=== PATIENT | male | born 1965 | race African-American/Black ===

== ENCOUNTER 2023-11-05 16:33 | Inpatient (IN) | payer SELFPAY ==
[~2023-11-05] VITALS: Ht 182.9 cm; Wt 69.9 kg
[2023-11-05] MEDS ORDERED: SODIUM CHLORIDE 0.9% 1000ML BAG (SEPSIS BOLUS) IV ONE (17:45)
[2023-11-05 20:34] LABS: BASOPHILS % 0.7 % (0.0-2.0); EOSINOPHILS % 0.2 % (0.0-5.0); HEMATOCRIT. 43.3 % (42.0-52.0); HEMOGLOBIN. 14.4 g/dL (14.0-18.0); LYMPHOCYTES % 16.4 % (20.0-50.0); MEAN CORPUSCULAR HEMOGLOBIN 28.8 pg (28.0-32.0); MEAN CORPUSCULAR HGB CONC 33.3 g/dL (31.0-37.0); MEAN CORPUSCULAR VOLUME 86.6 fL (80.0-94.0); MEAN PLATELET VOLUME 8.2 fl (7.4-10.4); MONOCYTES % 5.2 % (2.0-8.0); NEUTROPHILS % 77.5 % (40.0-76.0); PLATELET 186 x1000/uL (130-400); RED CELL DISTRIBUTION WIDTH 14.8 % (11.6-14.6); WHITE BLOOD COUNT 11.4 x1000/uL (4.5-11.0)
[2023-11-05 20:49] LABS: ACETAMINOPHEN < 2 ug/mL (10-30); ALANINE AMINOTRANSFERASE 32 IU/L (10-49); ASPARTATE AMINOTRANSFERASE 52 IU/L (<34); BILIRUBIN TOTAL 0.5 mg/dL (0.1-1.0); CALCIUM 9.2 mg/dL (8.7-10.4); CARBON DIOXIDE 21 mEq/L (21-32); CHLORIDE 110 mEq/L (98-107); CREATINE KINASE 898 IU/L (46-171); CREATININE 1.1 mg/dL (0.6-1.3); ETHANOL BLOOD 19 mg/dL (<10); GLUCOSE 60 mg/dL (70-105); POTASSIUM 4.3 mEq/L (3.5-5.1); PROTEIN TOTAL 6.9 g/dL (6.0-8.3); SODIUM 142 mEq/L (136-145); TROPONIN I HIGH SENSITIVITY 16 ng/L (3.0-53); UREA NITROGEN BLOOD 13 mg/dL (9-23)
[2023-11-05 20:51] LABS: LACTIC ACID 3.9 mmol/L (0.4-2.0)
[2023-11-05 20:59] LABS: PROTHROMBIN TIME 10.5 sec (9.6-11.0)
[2023-11-05 21:04] LABS: CLARITY URINE CLEAR (CLEAR); COLOR URINE YELLOW (YELLOW); GLUCOSE URINE NEGATIVE (NEGATIVE); KETONES URINE NEGATIVE (NEGATIVE); LEUKOCYTE ESTERASE URINE NEGATIVE (NEGATIVE); NITRITE URINE NEGATIVE (NEGATIVE); OCCULT BLOOD URINE NEGATIVE (NEGATIVE); PH URINE 5.5 (4.5-8.0); PROTEIN URINE NEGATIVE (NEGATIVE); SPECIFIC GRAVITY URINE 1.009 (1.005-1.030); UROBILINOGEN URINE 0.2 E.U./dL (0.2-1.0)
[2023-11-05 21:16] LABS: *AMPHETAMINES SCREEN URINE NEGATIVE (NEGATIVE); *BARBITURATES SCREEN URINE NEGATIVE (NEGATIVE); *BENZODIAZEPINES SCREEN URINE PRESUMPTIVE POSITIVE (NEGATIVE); *COCAINE SCREEN URINE PRESUMPTIVE POSITIVE (NEGATIVE); ECSTASY MDMA SCREEN URINE NEGATIVE (NEGATIVE); METHADONE URINE SCREEN Neg (NEGATIVE); OPIATES URINE SCREEN NEGATIVE (NEGATIVE); PHENCYCLIDINE URINE SCREEN PRESUMTIVE POSITIVE (NEGATIVE)
[2023-11-05] MEDS ORDERED: DEXTROSE 50% WATER 50ML SYRINGE IV ONE (22:00)
[2023-11-05] MEDS ORDERED: CEFTRIAXONE 1GM PREMIX 50 ML IV ONE (22:00)
[2023-11-05] MEDS ORDERED: AZITHROMYCIN 500MG/250ML 250 ML IV ONE (22:00)
[2023-11-06 03:43] VITALS: BP 137/77; PULSE 69; RESP 20; TEMP 96
[2023-11-06] MEDS ORDERED: LORAZEPAM 0.5MG TABLET PO PRN (04:45)
[2023-11-06 06:26] LABS: BASOPHILS % 1.1 % (0.0-2.0); HEMATOCRIT. 38.5 % (42.0-52.0); HEMOGLOBIN. 12.9 g/dL (14.0-18.0); LYMPHOCYTES % 29.2 % (20.0-50.0); MEAN CORPUSCULAR HEMOGLOBIN 28.5 pg (28.0-32.0); MEAN CORPUSCULAR HGB CONC 33.4 g/dL (31.0-37.0); MEAN CORPUSCULAR VOLUME 85.4 fL (80.0-94.0); MEAN PLATELET VOLUME 8.4 fl (7.4-10.4); MONOCYTES % 7.2 % (2.0-8.0); NEUTROPHILS % 60.5 % (40.0-76.0); PLATELET 202 x1000/uL (130-400); RED BLOOD CELL COUNT 4.51 mill/uL (4.7-6.1); RED CELL DISTRIBUTION WIDTH 14.7 % (11.6-14.6); WHITE BLOOD COUNT 8.6 x1000/uL (4.5-11.0)
[2023-11-06 07:12] LABS: ALANINE AMINOTRANSFERASE 25 IU/L (10-49); ALBUMIN 3.4 g/dL (3.2-4.8); ASPARTATE AMINOTRANSFERASE 40 IU/L (<34); BILIRUBIN TOTAL 0.5 mg/dL (0.1-1.0); CALCIUM 8.9 mg/dL (8.7-10.4); CARBON DIOXIDE 24 mEq/L (21-32); CHLORIDE 110 mEq/L (98-107); CREATINE KINASE 780 IU/L (46-171); GLUCOSE 103 mg/dL (70-105); POTASSIUM 3.8 mEq/L (3.5-5.1); PROTEIN TOTAL 5.9 g/dL (6.0-8.3); SODIUM 143 mEq/L (136-145); UREA NITROGEN BLOOD 15 mg/dL (9-23)
[2023-11-06 08:00] VITALS: BP 99/47; PULSE 52; RESP 20; TEMP 97.6
[2023-11-06 12:00] VITALS: BP 163/61; PULSE 75; RESP 20; TEMP 98
[2023-11-06 16:00] VITALS: BP 143/78; PULSE 68; RESP 20; TEMP 98.2
[2023-11-06 16:51] LABS: CREATINE KINASE 656 IU/L (46-171)
[2023-11-06] MEDS: SODIUM CHLORIDE 0.9% 1,000 ML IV SCH (17:01)
[2023-11-06 20:00] VITALS: BP 152/89; PULSE 89; RESP 20; TEMP 98.5
[2023-11-07 00:14] LABS: CREATINE KINASE 554 IU/L (46-171)
[2023-11-07 00:30] VITALS: BP 123/76; PULSE 81; RESP 18; TEMP 98.6
[2023-11-07 04:26] VITALS: BP 141/82; PULSE 55; RESP 18; TEMP 98.5
[2023-11-07] MEDS: SODIUM CHLORIDE 0.9% 1,000 ML IV SCH (05:36)
[2023-11-07 06:49] LABS: CREATINE KINASE 478 IU/L (46-171)
[2023-11-07 07:30] VITALS: BP 141/74; PULSE 56; RESP 18; TEMP 97.5
[2023-11-07 12:39] VITALS: BP 141/74; PULSE 56; TEMP 97.5; O2SAT 100
[2023-11-07 12:43] VITALS: BP 114/77; PULSE 54; RESP 18; TEMP 98.8
== END 2023-11-07 13:30 | disposition home or self-care (01) | DRG 812 ==
LOC: EDBD 16:33 → ER 16:33 → 7WST 21:58 → EDBEDREQ 22:28 → EDBEDREQTM 22:28
PROVIDERS: ADMIT Internal Medicine; ATTEND Internal Medicine
DX: T50.991A Poisoning by other drugs, medicaments and biological substances, accidental (unintentional), initial encounter (principal); E87.20 Acidosis, unspecified; M62.82 Rhabdomyolysis; Y92.89 Other specified places as the place of occurrence of the external cause
CPT/HCPCS: 36415; 71045; 80053; 80305; 80307; 80320; 80329; 81003; 82550; 83605; 83880; 84145; 84484; 85025; 93005; 99291; J0456; J0696; J7030; G0480